=== PATIENT | male | born 1990 | race Caucasian/White ===

== ENCOUNTER 2016-05-15 23:48 | Emergency (ER) | payer SELFPAY ==
[~2016-05-15] VITALS: Ht 167.6 cm; Wt 65.9 kg
[2016-05-15 23:53] VITALS: BP 133/82
== END 2016-05-16 01:30 | disposition left against medical advice (07) ==
LOC: EMS 23:49
DX: M54.5 Low back pain (principal); W19.XXXA Unspecified fall, initial encounter; Y93.89 Activity, other specified; Y92.89 Other specified places as the place of occurrence of the external cause; Y99.8 Other external cause status; Z53.21 Procedure and treatment not carried out due to patient leaving prior to being seen by health care provider

== ENCOUNTER 2022-10-17 16:39 | Emergency (ER) | payer SELFPAY ==
[~2022-10-17] VITALS: Ht 165.1 cm; Wt 72.7 kg
[2022-10-17 16:46] VITALS: TEMP 98.6
[2022-10-17 18:25] LABS: APPEARANCE,URINE CLEAR (CLEAR); BILIRUBIN,URINE NEGATIVE (NEGATIVE); COLOR,URINE YELLOW (YELLOW); GLUCOSE, URINE (UA) NEGATIVE (NEGATIVE); KETONES,URINE NEGATIVE (NEGATIVE); LEUKOCYTE ESTERASE ,URINE SMALL (NEGATIVE); NITRATE,URINE NEGATIVE (NEGATIVE); OCCULT BLOOD,URINE NEGATIVE (NEGATIVE); PROTEIN,URINE 30-70 mg/dL (NEGATIVE); SPECIFIC GRAVITIY, URINE 1.034 (1.003-1.030)
[2022-10-17 18:44] LABS: BACTERIA,URINE None Seen /HPF (None Seen); CALCIUM OXALATE CRYSTALS,UR Moderate /LPF (None Seen); MUCUS,URINE Moderate LPF (None Seen); SQUAMOUS EPITHELIAL CELL,UR None Seen /LPF (None Seen)
[2022-10-17 18:45] VITALS: BP 128/71; PULSE 89; RESP 16
== END 2022-10-17 19:40 | disposition home or self-care (01) ==
LOC: EMS 16:39
DX: S30.22XA Contusion of scrotum and testes, initial encounter (principal); N43.3 Hydrocele, unspecified; Z88.0 Allergy status to penicillin; V00.131A Fall from skateboard, initial encounter; Y93.I9 Activity, other involving external motion; Y92.89 Other specified places as the place of occurrence of the external cause; Y99.8 Other external cause status
CPT/HCPCS: 76870; 81001; 87086; 87186; 99284; Z7502

== ENCOUNTER 2022-11-03 20:27 | Emergency (ER) | payer MEDICAID ==
[~2022-11-03] VITALS: Ht 170.2 cm; Wt 70.0 kg
[2022-11-03 20:58] VITALS: TEMP 99.1
[2022-11-03 23:45] VITALS: BP 124/64; PULSE 64; RESP 17
[2022-11-03] MEDS ORDERED: TRAM-559 PO (23:57)
[2022-11-04] MEDS ORDERED: HYDROCODONE/ACETAMINOPHEN 5-325 MG TABLET PO ONE
== END 2022-11-04 00:10 | disposition home or self-care (01) ==
LOC: EMS 20:29
DX: N43.3 Hydrocele, unspecified (principal)
CPT/HCPCS: 99283

== ENCOUNTER 2024-09-29 20:56 | Emergency (ER) | payer MEDICAID ==
[~2024-09-29] VITALS: Ht 175.3 cm; Wt 78.2 kg
[~2024-09-29 20:56] MED LIST: TRAM50TA5 PO
[2024-09-29 21:05] VITALS: TEMP 98.605328
[2024-09-29 23:11] LABS: APPEARANCE,URINE CLEAR (CLEAR); GLUCOSE, URINE (UA) NEGATIVE (NEGATIVE); LEUKOCYTE ESTERASE ,URINE NEGATIVE (NEGATIVE); NITRATE,URINE NEGATIVE (NEGATIVE); OCCULT BLOOD,URINE NEGATIVE (NEGATIVE); PH,URINE DRUG SCREEN 7.0 (5.0-8.0); SPECIFIC GRAVITIY, URINE 1.024 (1.003-1.030)
[2024-09-29 23:17] LABS: ALCOHOL, URINE DRUG SCREEN NEGATIVE (NEGATIVE); AMPHET/METH SCREEN,URINE NEGATIVE (NEGATIVE); BARBITURATE SCREEN, URINE NEGATIVE (NEGATIVE); CANNABINOID SCREEN,URINE NEGATIVE (NEGATIVE); COCAINE SCREEN,URINE NEGATIVE (NEGATIVE); METHADONE SCREEN, URINE NEGATIVE (NEGATIVE)
[2024-09-30] VITALS: BP 133/72; PULSE 65; RESP 18; O2SAT 99
== END 2024-09-30 00:45 | disposition home or self-care (01) ==
LOC: EMS 20:56
DX: F41.9 Anxiety disorder, unspecified (principal); F17.210 Nicotine dependence, cigarettes, uncomplicated; Z79.899 Other long term (current) drug therapy; Z88.0 Allergy status to penicillin
CPT/HCPCS: 80307; 81003; 93005; 99284